=== PATIENT | female | born 2000 | race African-American/Black ===

== ENCOUNTER 2022-07-01 07:23 | Inpatient (IN) | payer MEDICAID, OTHER ==
[~2022-07-01] VITALS: Ht 162.6 cm; Wt 75.8 kg
[2022-07-01] MEDS ORDERED: MORPHINE SULFATE 4 MG/ML CPJ (NOT FOR IM USE) IV STA (07:30)
[2022-07-01] MEDS ORDERED: ONDANSETRON HCL 4MG/2ML INJ IV STA (07:30)
[2022-07-01] MEDS ORDERED: SODIUM CHLORIDE 0.9% 1,000 ML IV ONE ×2 (07:30→10:45)
[2022-07-01 09:09] LABS: MEAN CORPUSCULAR HEMOGLOBIN 28.7 pg (28.0-32.0); MEAN CORPUSCULAR VOLUME 83.8 fL (81.0-99.0); MEAN PLATELET VOLUME 9.8 fl (7.4-10.4); PLATELET 392 x1000/uL (130-400); RED CELL DISTRIBUTION WIDTH 21.1 % (11.6-14.6)
[2022-07-01 09:11] LABS: HEMATOCRIT. 20.5 % (36.0-48.0)
[2022-07-01 09:12] LABS: RED BLOOD CELL COUNT 2.44 mill/uL (4.2-5.4)
[2022-07-01 09:26] LABS: HCG SCREEN NEGATIVE
[2022-07-01] MEDS ORDERED: FENTANYL CITRATE/PF 50MCG/ML 2ML VIAL IV ONE ×2 (09:30→10:30)
[2022-07-01 09:37] LABS: NUCLEATED RED BLOOD CELLS 3 /100 WBC; PLATELET ESTIMATE NORMAL
[2022-07-01 09:51] LABS: CHLORIDE 106 mEq/L (98-107)
[2022-07-01 10:02] LABS: ETHANOL BLOOD < 10 mg/dL
[2022-07-01] MEDS ORDERED: ONDANSETRON HCL 4MG/2ML INJ IV ONE (10:30)
[2022-07-01] MEDS ORDERED: MORPHINE SULFATE 4 MG/ML CPJ (NOT FOR IM USE) IV ONE (10:45)
[2022-07-01] MEDS ORDERED: GUAIFENESIN 200MG/10ML SUGAR FREE UDC PO PRN (13:15)
[2022-07-01] MEDS ORDERED: MORPHINE SULFATE 2 MG/ML CPJ (NOT FOR IM USE) IV NR (13:15)
[2022-07-01] MEDS ORDERED: CLONIDINE 0.1MG TABLET PO PRN (13:15)
[2022-07-01] MEDS ORDERED: ACETAMINOPHEN 325MG TABLET PO PRN (13:15)
[2022-07-01] MEDS ORDERED: ONDANSETRON HCL 4MG/2ML INJ IV PRN (13:15)
[2022-07-01] MEDS ORDERED: IPRATROPIUM/ALBUTEROL 0.5-3(2.5)MG/3ML NEB HHN PRN (13:15)
[2022-07-01] MEDS ORDERED: FOLIC ACID 1 MG in SODIUM CHLORIDE 0.9% 500 ML IV NR (14:00)
[2022-07-01 16:00] VITALS: BP 130/66
[2022-07-01] MEDS ORDERED: DEXTROSE 50% WATER 50ML SYRINGE IV PRN (16:30)
[2022-07-01] MEDS ORDERED: POLYETHYLENE GLYCOL 3350 (17GM) 1 DOSE PACK PO PRN (16:30)
[2022-07-01] MEDS: FLUOXETINE HCL 10 MG CAPSULE PO SCH (16:42)
[2022-07-01] MEDS: MORPHINE SULFATE 2 MG/ML CPJ (NOT FOR IM USE) IV SCH ×2 (16:42→21:54)
[2022-07-01] MEDS: ENOXAPARIN 40MG/0.4ML SYR SUBCUT SCH (17:00)
[2022-07-01] MEDS: DEXT 5%/0.45% NACL 1000ML 1,000 ML IV SCH (17:34)
[2022-07-01] MEDS: BLOOD SUGAR DIAGNOSTIC STRIP TEST SCH ×2 (17:45→21:54)
[2022-07-01] MEDS: INSULIN LISPRO 100 UNITS/ML SUBCUT SCH ×2 (17:46→21:00)
[2022-07-01] MEDS ORDERED: NALOXONE HCL 0.4MG/ML VIAL IV PRN (18:30)
[2022-07-01] MEDS: FERROUS SULFATE 325MG TABLET PO SCH (18:48)
[2022-07-01] MEDS: MORPHINE SULFATE 2 MG/ML CPJ (NOT FOR IM USE) IV PRN ×2 (18:59→23:59)
[2022-07-01 20:00] VITALS: BP 111/58
[2022-07-01] MEDS ORDERED: CEFTRIAXONE 1GM PREMIX 50 ML IV SCH (20:00)
[2022-07-01] MEDS ORDERED: ALBUTEROL (0.083%) 2.5MG/3ML NEB HHN PRN (21:00)
[2022-07-01] MEDS ORDERED: IPRATROPIUM BROMIDE (0.02%) 0.5MG/2.5ML NEB HHN PRN (21:00)
[2022-07-01] MEDS: FAMOTIDINE 20MG TABLET PO SCH (21:54)
[2022-07-02] VITALS: BP 101/46
[2022-07-02] MEDS: DEXT 5%/0.45% NACL 1000ML 1,000 ML IV SCH ×2 (01:48→12:44)
[2022-07-02] MEDS: MORPHINE SULFATE 2 MG/ML CPJ (NOT FOR IM USE) IV SCH ×3 (01:49→09:24)
[2022-07-02 04:00] VITALS: BP 104/56
[2022-07-02] MEDS: BLOOD SUGAR DIAGNOSTIC STRIP TEST SCH (07:40)
[2022-07-02 08:00] VITALS: BP 107/56
[2022-07-02] MEDS: INSULIN LISPRO 100 UNITS/ML SUBCUT SCH (08:10)
[2022-07-02] MEDS ORDERED: SENNOSIDES/DOCUSATE SOD 8.6/50MG TABLET PO SCH (09:00)
[2022-07-02] MEDS ORDERED: FOLIC ACID 1MG TABLET PO SCH (09:00)
[2022-07-02] MEDS: ENOXAPARIN 40MG/0.4ML SYR SUBCUT SCH (09:13)
[2022-07-02] MEDS: FAMOTIDINE 20MG TABLET PO SCH (09:14)
[2022-07-02] MEDS: FERROUS SULFATE 325MG TABLET PO SCH ×2 (09:14→12:44)
[2022-07-02] MEDS: FLUOXETINE HCL 10 MG CAPSULE PO SCH (09:17)
[2022-07-02] MEDS ORDERED: SODIUM CHLORIDE 0.9% 1,000 ML IV ONE (10:00)
[2022-07-02] MEDS ORDERED: MORPHINE SULFATE 2 MG/ML CPJ (NOT FOR IM USE) IV PRN ×2 (10:51→13:00)
[2022-07-02 12:00] VITALS: BP 108/45
[2022-07-02 15:55] VITALS: BP 105/49
== END 2022-07-02 16:15 | disposition left against medical advice (07) | DRG 662 ==
LOC: ER 07:23 → EDBEDREQTM 12:35 → EDBEDREQ 12:35 → ENRESERV 14:02 → 7WST 15:50
PROVIDERS: ADMIT Internal Medicine; ATTEND Internal Medicine
DX: D57.00 Hb-SS disease with crisis, unspecified (principal); R65.10 Systemic inflammatory response syndrome (SIRS) of non-infectious origin without acute organ dysfunction; D73.5 Infarction of spleen; K76.0 Fatty (change of) liver, not elsewhere classified; J45.909 Unspecified asthma, uncomplicated; F41.9 Anxiety disorder, unspecified; E80.6 Other disorders of bilirubin metabolism; R16.1 Splenomegaly, not elsewhere classified; D72.829 Elevated white blood cell count, unspecified; Z53.29 Procedure and treatment not carried out because of patient's decision for other reasons; Z91.199 Patient's noncompliance with other medical treatment and regimen due to unspecified reason; Z82.49 Family history of ischemic heart disease and other diseases of the circulatory system
CPT/HCPCS: 36415; 71045; 76700; 80053; 80320; 82962; 83605; 83880; 84484; 84703; 85025; 85044; 85379; 86850; 86900; 93005; 93970; 99285; C1893; J0696; J1650; J2270; J2405; J3010; J3490; J7030; J7040; G0480